=== PATIENT | female | born 1975 | race Caucasian/White ===

== ENCOUNTER 2023-01-04 16:53 | Outpatient (CLI) | payer OTHER, SELFPAY | END 2023-01-04 16:54 | disposition home or self-care (01) | LOC: NFLDREF 16:57 | PROVIDERS: PCP Internal Medicine; Visit Provider Internal Medicine | DX: Z00.00 Encounter for general adult medical examination without abnormal findings (principal); R10.9 Unspecified abdominal pain | CPT/HCPCS: 80053; 87086 ==

== ENCOUNTER 2023-01-18 07:16 | Outpatient (CLI) | payer OTHER, SELFPAY ==
--- NOTE | 2023-01-18 07:15 | CRLHL7_ITS ---
For Patients: As a result of the Century Cures Act, medical imaging exams and procedure reports are released immediately into your electronic medical record. You may view this report before your referring provider. If you have questions, please contact your health care provider. INDICATION: Unspecified abdominal pain. TECHNIQUE: Ultrasound abdomen limited. Sonographic images of the right upper quadrant were obtained using pritchard-scale and color Doppler images. COMPARISON: None. FINDINGS: Liver: Normal in size and echotexture. No suspicious masses. No intrahepatic biliary dilatation. Portal vein is patent with blood flow toward the liver. Gallbladder: No stones or sludge. Normal wall thickness. No pericholecystic fluid. Common bile duct: 3 mm. Pancreas: Unremarkable. Right kidney: Normal in size. Normal echotexture and cortex. No suspicious masses, stones, or hydronephrosis. Vasculature: Proximal abdominal aorta and IVC are unremarkable. IMPRESSION: Unremarkable right upper quadrant ultrasound. Dictated by Ash Clayton MD @ 01/18/2023 4:31:13 PM (Electronically Signed)
== END 2023-01-18 07:17 | disposition home or self-care (01) ==
LOC: US 07:17
PROVIDERS: PCP Internal Medicine; Visit Provider Internal Medicine
DX: R10.9 Unspecified abdominal pain (principal)
CPT/HCPCS: 76705

== ENCOUNTER 2023-08-17 09:18 | Outpatient (CLI) | payer BC, SELFPAY ==
--- OUTSIDE RECORDS SUMMARY | 2023-08-17 09:20 | XMS_ITS | Referral Summary ---
Author Organization [facility] Address [address] [place] [address]. [place] [address] Care Team Providers Care Energy Engineer Name Role Phone Waldemar Mariano MD Primary Care Provider [phone] Social History Tobacco Use Types Packs/Day Years Used Date Smoking Tobacco: Never Assessed Adolescent Education Answer Date Record ed Getting School Help Needed Not on file 11/20 Sex and Gender Information Value Date Recorded Sex Assigned at Not on file Gender Identity Not on file Sexual Orientation Not on file Plan of Treatment Not on file Procedures Procedure Name Priority Date/Time Associated Diagnosis Comments MA DIAGNOSTIC BILATERAL W/ GALLO Routine 01/30/2023 2:56 PM PICKLE SORTER Abnormal mammogram from Last 3 Months or Most Recently Relevant to Health Maintenance Results * MA Diagnostic Bilateral w/Gallo (01/30/2023 2:56 PM PICKLE SORTER) Anatomical Region Laterality Modality Breast Bilateral Mammography Impressions 01/30/2023 3:00 PM PICKLE SORTER IMPRESSION: BI-RADS CATEGORY: 1 - ??NEGATIVE. RECOMMENDED FOLLOW-UP: Annual Mammography. The patient was given the results of the examination. ROSSANA BOYD MD Narrative 01/30/2023 3:00 PM PICKLE SORTER Examination: Bilateral digital diagnostic mammography and digital breast tomosynthesis with computer aided detection, 01/30/2023. Comparison: 04/17/2020, 12/30/2021 and 01/12/2022. History: Follow-up probably benign asymmetry in the RIGHT breast. BREAST DENSITY: Heterogeneously dense Findings: Bilateral mammography with digital breast tomosynthesis was performed. Previously noted focal asymmetry in the upper outer quadrant of the RIGHT breast dissipates on tomosynthesis in today's study, indicating normal fibroglandular tissue. No concerning mammographic/tomographic findings in either breast. Procedure Note Rossana Boyd MD - 01/30/2023 Examination: Bilateral digital diagnostic mammography and digital breast tomosynthesis with computer aided detection, 01/30/2023. Comparison: 04/17/2020, 12/30/2021 and 01/12/2022. History: Follow-up probably benign asymmetry in the RIGHT breast. BREAST DENSITY: Heterogeneously dense Findings: Bilateral mammography with digital breast tomosynthesis was performed. Previously noted focal asymmetry in the upper outer quadrant of the RIGHT breast dissipates on tomosynthesis in today's study, indicating normal fibroglandular tissue. No concerning mammographic/tomographic findings in either breast. IMPRESSION: BI-RADS CATEGORY: 1 - NEGATIVE. RECOMMENDED FOLLOW-UP: Annual Mammography. The patient was given the results of the examination. ROSSANA BOYD MD Ophelia Miranda Flores MD IMG M AMMOGRAPHY ORDERABLES from Last 3 Months or Most Recently Relevant to Health Maintenance Care Teams Energy Engineer Relationship Specialty Start Date End Date Waldemar Mariano MD PCP - General Family Medicine 07/09/20
--- OUTSIDE RECORDS SUMMARY | 2023-08-17 09:20 | XMS_ITS | Clinical Summary ---
Author Organization [facility] Address [address] [place] [id number] Care Team Providers Care Aircraft Engine Technician Name Role Phone Waldemar Mariano MD Primary Care Provider [phone] Social History Tobacco Use Types Packs/Day Years Used Date Smoking Tobacco: Never Assessed Adolescent Education Answer Date Record ed Getting School Help Needed Not on file 11/20 Sex and Gender Information Value Date Recorded Sex Assigned at Not on file Gender Identity Not on file Sexual Orientation Not on file Plan of Treatment Health Maintenance Due Date Last Done Comments ADVANCE CARE PLANNING 1975 ANNUAL REVIEW OF HM ORDERS 1973 CT COLONOGRAPHY 1973 FIT 1973 FLEX SIG 1973 GLUCOSE 1973 sDNA (Cologuard) 1973 COLONOSCOPY 12/16/1983 COLORECTAL CANCER SCREENING 12/16/1983 HIV SCREENING 1988 HEPATITIS C SCREENING 12/16/1991 HEPATITIS B IMMUNIZATION (1 of 3 - 19+ 3-dose series) 1992 DTAP/TDAP/TD IMMUNIZATION (1 - Tdap) 1998 LIPID 2013 YEARLY PREVENTIVE VISIT 08/01/2019 07/31/2018 PAP 07/31/2021 07/31/2018, 07/31/2018 COVID-19 Vaccine ( - season) 2022 PHQ-2 (once per calendar year) 2023 INFLUENZA VACCINE (Season Ended) 2023 02/23/2012, 02/23/2012, 02/18/2010, Additional history exists ZOSTER IMMUNIZATION (1 of 2) 12/16/2023 MAMMO SCREENING 01/30/2025 01/30/2023, 12/22, 12/30/2021, Additional history exists HPV IMMUNIZATION Aged Out No longer e ligible based on patient's age to complete this topic IPV IMMUNIZATION Aged Out No longer e ligible based on patient's age to complete this topic MENINGITIS IMMUNIZATION Aged Out No l onger eligible based on patient's age to complete this topic Pneumococcal Vaccine: Pediatrics (0 to 5 Years) and At-Risk Patients (6 to 64 Years) Aged Out No longer eligible based on patient's age to complete this topic RSV MONOCLONAL ANTIBODY Aged Out No l onger eligible based on patient's age to complete this topic Procedures Procedure Name Priority Date/Time Associated Diagnosis Comments MA DIAGNOSTIC BILATERAL W/ GALLO Routine 01/30/2023 2:56 PM RN NEW GRADUATE Abnormal mammogram from Last 3 Months or Most Recently Relevant to Health Maintenance Results * MA Diagnostic Bilateral w/Gallo (01/30/2023 2:56 PM RN NEW GRADUATE) Anatomical Region Laterality Modality Breast Bilateral Mammography Impressions 01/30/2023 3:00 PM RN NEW GRADUATE IMPRESSION: BI-RADS CATEGORY: 1 - ??NEGATIVE. RECOMMENDED FOLLOW-UP: Annual Mammography. The patient was given the results of the examination. ROSSANA BOYD MD Narrative 01/30/2023 3:00 PM RN NEW GRADUATE Examination: Bilateral digital diagnostic mammography and digital [...] BOYD MD Ophelia Miranda Flores MD IMG AMMOGRAPHY ORDERABLES from Last 3 Months or Most Recently Relevant to Health Maintenance Care Teams Aircraft Engine Technician Relationship Specialty Start Date End Date Waldemar Mariano MD PCP - General Family Medicine 07/09/20
--- NOTE | 2023-08-17 09:30 | CRLHL7_ITS ---
For Patients: As a result of the Century Cures Act, medical imaging exams and procedure reports are released immediately into your electronic medical record. You may view this report before your referring provider. If you have questions, please contact your health care provider. INDICATION: Right upper quadrant abdominal pain. TECHNIQUE: 5.29 mCi Tc-99m labeled Mebrofenin. 1.45 mcg Kinevac IV. FINDINGS: There is normal uptake and excretion of tracer by the liver. Activity is identified promptly within the gallbladder and extrahepatic biliary tree within 5 minutes after injection. There is continued filling of the gallbladder up to 1 hour. No biliary leak. After the administration of Kinevac, the gallbladder ejection fraction is calculated at 25 percent which is below the lower limit of normal of 35 percent. (the patient`s symptoms were reportedly reproduced with Kinevac administration). IMPRESSION: 1. No evidence for cystic duct or common duct obstruction. No evidence for acute cholecystitis. No biliary leak. 2. Abnormally low gallbladder ejection fraction of 25 percent which can be seen in chronic acalculous cholecystitis or biliary dyskinesia. Please correlate clinically. Dictated by José Reynolds MD @ 08/17/2023 12:15:16 PM (Electronically Signed)
== END 2023-08-17 09:19 | disposition home or self-care (01) ==
LOC: NM 09:18
PROVIDERS: PCP Internal Medicine; Visit Provider Internal Medicine
DX: R10.11 Right upper quadrant pain (principal)
CPT/HCPCS: 78227; A9537; J2805

== ENCOUNTER 2023-08-31 09:35 | Day surgery (SDC) | payer BC, SELFPAY ==
[2023-08-31] VITALS (13 sets, daily range): BP systolic 99–116; BP diastolic 59–73; PULSE 53–79; RESP 14–18; TEMP 36.5–36.6; O2SAT 96–100; BMI 22.9
--- OUTSIDE RECORDS SUMMARY | 2023-08-31 09:37 | XMS_ITS | Referral Summary ---
Author Organization [facility] Address [address] [place] [address]. [place] [address] Care Team Providers Care Teller Manager Name Role Phone Waldemar Mariano MD Primary Care Provider Social History Tobacco Use Types Packs/Day Years [...] BILATERAL W/ GALLO Routine 01/30/2023 2:56 PM CHIEF LIBRARIAN BRANCH OR DEPARTMENT Abnormal mammogram from Last 3 Months or Most Recently Relevant to Health Maintenance Results * MA Diagnostic Bilateral w/Gallo (01/30/2023 2:56 PM CHIEF LIBRARIAN BRANCH OR DEPARTMENT) Anatomical Region Laterality Modality Breast Bilateral Mammography Impressions 01/30/2023 3:00 PM CHIEF LIBRARIAN BRANCH OR DEPARTMENT IMPRESSION: BI-RADS CATEGORY: 1 - ??NEGATIVE. RECOMMENDED FOLLOW-UP: Annual Mammography. The patient was given the results of the examination. ROSSANA BOYD MD Narrative 01/30/2023 3:00 PM CHIEF LIBRARIAN BRANCH OR DEPARTMENT Examination: Bilateral digital diagnostic mammography and digital [...] Recently Relevant to Health Maintenance Care Teams Teller Manager Relationship Specialty Start Date End Date Waldemar Mariano MD PCP - General Family Medicine 07/09/20
--- OUTSIDE RECORDS SUMMARY | 2023-08-31 09:37 | XMS_ITS | Clinical Summary ---
Author Organization [facility] Address [address] [place] [address] Care Team Providers Care Intensive Care Anaesthetist Name Role Phone Waldemar Mariano MD Primary Care Provider [phone] Social History Tobacco Use Types Packs/Day Years [...] BILATERAL W/ GALLO Routine 01/30/2023 2:56 PM PRINT COLOR MATCHER Abnormal mammogram from Last 3 Months or Most Recently Relevant to Health Maintenance Results * MA Diagnostic Bilateral w/Gallo (01/30/2023 2:56 PM PRINT COLOR MATCHER) Anatomical Region Laterality Modality Breast Bilateral Mammography Impressions 01/30/2023 3:00 PM PRINT COLOR MATCHER IMPRESSION: BI-RADS CATEGORY: 1 - ??NEGATIVE. RECOMMENDED FOLLOW-UP: Annual Mammography. The patient was given the results of the examination. ROSSANA BOYD MD Narrative 01/30/2023 3:00 PM PRINT COLOR MATCHER Examination: Bilateral digital diagnostic mammography and digital [...] Recently Relevant to Health Maintenance Care Teams Intensive Care Anaesthetist Relationship Specialty Start Date End Date Waldemar Mariano MD PCP - General Family Medicine 07/09/20
[2023-08-31 09:57] LABS: Ur HCG Qualitative* Negative (Negative)
[2023-08-31] MEDS: SODIUM CHLORIDE 0.9 % (FLUSH) 10 ML SYRINGE IVF (09:58)
[2023-08-31] MEDS: LACTATED RINGERS 1000 ML 1,000 ML 100 ML IV (09:58)
--- NOTE | 2023-08-31 10:07 | P.GSOP_ITS ---
Operative Note Date of procedure: 08/31/23 Pre-op diagnosis: Biliary dyskinesia Post-op diagnosis: same Type of Procedure: Laparoscopic cholecystectomy Indications: The patient is a 47-year-old female who presented to clinic with 9 months of abdominal pain on the right side as well as increased bloating. Workup revealed a normal gallbladder, however HIDA scan was obtained which showed an abnormally low ejection fraction of 25%. After discussion of options, she elected to proceed with cholecystectomy. Procedure Description: After discussing the risks and benefits of the procedure, the patient signed informed consent.? The operative site was marked and the patient was brought to the operating room and placed on the operating table in supine position.? Care was taken to pad the patient's pressure points.?? The patient was then intubated by anesthesia.?? The operative site was then prepped and draped in the usual sterile fashion.? A time-out was then performed. Entrance to the abdomen was gained via a 5 mm Visiport in the left upper quadrant. The abdomen was insufflated and briefly surveyed for signs of injury. There was none. A 10 mm umbilical port was placed as well as 2 working ports along the right costal margin, all under direct vision. The patient was then placed in reverse Trendelenburg position with the right side up. The gallbladder fundus was grasped and retracted cephalad. A small amount of dissection was needed to free omental adhesions from the gallbladder. The infundibulum was grasped. A combination of hook cautery and blunt dissection was used to carefully dissect out the cystic duct and artery until they could clearly be seen entering the gallbladder without any intervening structures. The gallbladder was dissected off the cystic plate to achieve the critical view. Once this was achieved the cystic duct and artery were each clipped with 2 clips proximally and 1 clip distally and transected with the scissors. The gallbladder was then taken off of the liver bed and removed from the abdomen using an Endo- Catch bag. The gallbladder bed was surveyed for hemostasis which appeared adequate. The ports were then removed and the abdomen desufflated.The umbilical port fascia was closed with 0 Vicryl. The skin was closed with absorbable subcu ticular suture. Sterile dressings were applied. Instrument sponge and needle counts were correct at the end of the case. The patient was then woken and transferred to the PACU in stable condition. ? The patient tolerated the procedure well. Findings: Omental adhesions to the gallbladder. Anesthesia: GETA Surgeon: Mary Mohamud MD Estimated blood loss (mL): 5 Specimen: Gallbladder Condition: stable Disposition: PACU
[2023-08-31] MEDS: CEFAZOLIN 1 GM inj IVP (10:34)
--- NOTE | 2023-08-31 11:15 | W.ANESCHARGE ---
Anesthesia Charges Start Date/Time Anesthesia Start Date: 08/31/23 Anesthesia Start Time: 10:24 Stop Date/Time Anesthesia Stop Date: 08/31/23 Anesthesia Stop Time: 11:36
[2023-08-31] MEDS: BUPIVACAINE 0.25% 30 ML INJECTION (11:18)
--- NOTE | 2023-08-31 11:37 | W.ANESCHARGE ---
Anesthesia Charges Start Date/Time Anesthesia Start Date: 08/31/23 Anesthesia Start Time: 10:24 Stop Date/Time Anesthesia Stop Date: 08/31/23 Anesthesia Stop Time: 11:36
[2023-08-31] MEDS: HYDROCODONE-ACETAMIN 5-325 MG 1 TAB PO (12:10)
== END 2023-08-31 13:23 | disposition home or self-care (01) ==
PROVIDERS: Anesthesiology; PCP Internal Medicine; Visit Provider Surgery
PROC: 0FT44ZZ Resection of Gallbladder, Percutaneous Endoscopic Approach (ICD-10-PCS; CPT 47562; principal; 2023-08-31 10:15)
DX: K82.8 Other specified diseases of gallbladder (principal); R10.9 Unspecified abdominal pain
CPT/HCPCS: 47562; 00790; 81025; 88304; A9270; J0665; J0690; J1100; J1885; J2250; J2371; J2405; J2704; J2710; J3010; J7120

== ENCOUNTER 2023-10-04 15:15 | Outpatient (RCR) | payer BC, SELFPAY | END 2024-02-01 23:59 | disposition home or self-care (01) | PROVIDERS: PCP Internal Medicine; Visit Provider Physician Assistant | DX: M17.0 Bilateral primary osteoarthritis of knee (principal); M25.562 Pain in left knee; M25.561 Pain in right knee; R26.89 Other abnormalities of gait and mobility; R29.898 Other symptoms and signs involving the musculoskeletal system; Z51.89 Encounter for other specified aftercare | CPT/HCPCS: 97110; 97140; 97162 ==

== ENCOUNTER 2024-10-04 11:02 | Emergency (ER) | payer BC, SELFPAY ==
--- OUTSIDE RECORDS SUMMARY | 2024-10-04 11:04 | XMS_ITS | Clinical Summary ---
Author Organization [facility] Address [address] [place] [address] Care Team Providers Care Automatic Spinning Lathe Operator Name Role Phone Waldemar Mariano MD Primary Care Provider [phone] Social History Tobacco Use Types Packs/Day Years Used Date Smoking Tobacco: Never Assessed Adolescent Education Answer Date Record ed Getting School Help Needed Not on file 11/20 Comments Unknown Sex and Gender Information Value Date Recorded Sex Assigned at Not on file Legal Sex Female 3:21 AM RESEARCH PROGRAM ASSISTANT Gender Identity Not on file Sexual Orientation Not on file Plan of Treatment Upcoming Encounters Date Type Department Care Team (Late st Contact Info) Description 10/16/2024 2:45 PM CDT Appointment [facility] [address], [address] [place] [address] Health Maintenance Due Date Last Done Comments ADVANCE CARE PLANNING 1975 ANNUAL REVIEW OF HM ORDERS 1973 CT COLONOGRAPHY 1973 DIABETES SCREENING 1973 FIT 1973 FLEX SIG 1973 sDNA (Cologuard) 1973 COLONOSCOPY 12/16/1983 COLORECTAL CANCER SCREENING 12/16/1983 HIV SCREENING 1988 HEPATITIS C SCREENING 12/16/1991 HEPATITIS B VACCINE (1 of 3 - 19+ 3-dose series) 1992 DTAP/TDAP/TD VACCINE (1 - Tdap) 1998 LIPID 2013 YEARLY PREVENTIVE VISIT 08/01/2019 07/31/2018 PAP 07/31/2021 07/31/2018, 07/31/2018 COVID-19 VACCINE (1 - season) 2023 PNEUMOCOCCAL VACCINE 50+ YEARS (1 of 1 - PCV) 12/16/2023 ZOSTER VACCINE (1 of 2) 12/16/2023 PHQ-2 (once per calendar year) 2024 INFLUENZA VACCINE (#1) 2024 02/23/2012, 2009 MAMMO SCREENING 01/30/2025 01/30/2023, 12/22, 12/30/2021, Additional history exists HPV VACCINE (No Doses Required) Completed MENINGITIS VACCINE Aged Out No longer eligible based on patient's age to complete this topic Procedures Procedure Name Priority Date/Time Associated Diagnosis Comments MA DIAGNOSTIC BILATERAL W/ GALLO Routine 01/30/2023 2:56 PM RESEARCH PROGRAM ASSISTANT Abnormal mammogram from Last 3 Months or Most Recently Relevant to Health Maintenance Results * MA Diagnostic Bilateral w/Gallo (01/30/2023 2:56 PM RESEARCH PROGRAM ASSISTANT) Anatomical Region Laterality Modality Breast Bilateral Mammography Impressions 01/30/2023 3:00 PM RESEARCH PROGRAM ASSISTANT IMPRESSION: BI-RADS CATEGORY: 1 - NEGATIVE. RECOMMENDED FOLLOW-UP: Annual Mammography. The patient was given the results of the examination. ROSSANA BOYD MD Narrative 01/30/2023 3:00 PM RESEARCH PROGRAM ASSISTANT Examination: Bilateral digital diagnostic mammography and digital [...] BOYD MD Ophelia Miranda Flores MD IMG MAMMOGRAP ORDERABLES Final Result from Last 3 Months or Most Recently Relevant to Health Maintenance Insurance * Guarantor: Shelby Bacon Account Type Relation to Patient Date of Phone Billing Address Personal/Family Self [address] [place] [id number] [employer]ATT[email or web address] [facility] Address: [facility] [address] [place] [address] [place] [address] [employer] Care Teams Automatic Spinning Lathe Operator Relationship Specialty Start Date End Date Waldemar Mariano MD PCP - General Family Medicine 07/09/20
[2024-10-04 11:06] VITALS: BP 95/62; PULSE 74; RESP 16; TEMP 36.6; O2SAT 97; BMI 23.6
--- NOTE | 2024-10-04 11:33 | CRLHL7_ITS ---
For Patients: As a result of the Century Cures Act, medical imaging exams and procedure reports are released immediately into your electronic medical record. You may view this report before your referring provider. If you have questions, please contact your health care provider. INDICATION: Pelvic pain and history of endometriosis COMPARISON: None. TECHNIQUE: Transabdominal: Hill-scale and color Doppler ultrasound of the uterus and ovaries from a transabdominal approach. Transvaginal: Hill-scale and color Doppler ultrasound of the uterus and ovaries from a transvaginal approach. Transvaginal ultrasound of the pelvis was performed to better visualize the genitourinary organs, such as the ovaries and/or endometrium. Color-flow and spectral Doppler imaging of both ovaries is performed. FINDINGS: Reported last menstrual period: Not provided. The uterus is retroverted and measures 8.2 x 4.0 x 4.9 cm. No uterine masses. No visible endometrial stripe. There is an IUD in the endometrial canal. The right ovary measures 2.1 x 1.5 x 1.4 cm. Physiologic appearance without a dominant cystic lesion or solid ovarian / adnexal mass. There is normal arterial and venous color Doppler flow and normal arterial and venous waveforms on duplex Doppler. The left ovary measures 2.2 x 1.2 x 1.4 cm. Physiologic appearance without a dominant cystic lesion or solid ovarian / adnexal mass. There is normal arterial and venous color Doppler flow and normal arterial and venous waveforms on duplex Doppler. Small right lower quadrant free fluid. IMPRESSION: Small right lower quadrant free fluid. IUD in good position. Quiescent appearance of both ovaries without any follicles or masses. Dictated by Radha Kraus MD @ 10/04/2024 12:39:58 PM (Electronically Signed)
[2024-10-04 11:51] LABS: Lactate* 0.8 mmol/L (0.5-1.9)
--- NOTE | 2024-10-04 11:51 | ED.GENADULT ---
HPI - General Adult General Chief complaint: Abdominal Pain Stated complaint: Lower abdominal pain Time Seen by Provider: 10/04/24 11:23 Source: patient Mode of arrival: ambulatory Limitations: no limitations History of Present Illness HPI narrative: 48-year-old female coming in today complaining of suprapubic pain that started yesterday. States that she had a hard time sleeping secondary to discomfort. She states that she has had this before but it was never been quite as uncomfortable as it was last night. Patient has an IUD in place that has been there for approximately 5 years she is due to have it taken out this fall, she has an appointment in 2 weeks. She denies vaginal discharge, increased urinary frequency or urgency, dysuria, diarrhea or constipation. States that her last bowel movement was the day before yesterday she generally has a bowel movement every 2nd and 3rd day. She denies nausea or vomiting. No fevers or chills. Pain does not radiate. Past surgical history includes a surgery for endometriosis many years ago and a cholecystectomy approximately 1 year ago. Related Data Previous Rx's ?Medication ?Instructions ?Recorded nitrofurantoin 100 mg PO Q12H 5 days #10 caps 10/04/24 monohydrate/macrocrystals 100 mg capsule (Macrobid) Allergies Allergy/AdvReac Type Severity Reaction Status Date / Time No Known Drug Allergies Allergy Verified 10/04/24 11:05 Review of Systems Status of ROS: Reports: 10 or more systems reviewed and unremarkable except as noted in History and below PFSH [facility] Medical History Abdominal pain ?R10.9 - Unspecified abdominal pain (ICD-10) Surgical History History of cholecystectomy (08/31/23) ?Z90.49 - Acquired absence of other specified parts of digestive tract (ICD-10) H/O laparoscopy ?Z98.890 - Other specified postprocedural states (ICD-10) Social History Narrative: No tobacco use. 2-3 drinks/week. Works as a business process associate. Smoking Status: Never smoker How often do you have a drink containing alcohol: monthly or less How many standard drinks containing alcohol do you have on a typical day: 3 or 4 AUDIT-C Alcohol total score: 2 Non-prescribed substance use: denies use Caffeine: No Are you using contraception or practicing any form of control: Yes Exam Narrative: Exam Narrative: Well-nourished well-developed patient in no acute distress. Alert and oriented. Answers questions appropriately. Mood and affect are appropriate. Thoughts are goal oriented and rational. No tangential or magical thinking noted. Patient speaks in full sentences without needing to catch her breath. HEENT: Normocephalic atraumatic. Pupils are equally round reactive to light. Extraocular muscles are intact. Conjunctivae are moist without any icterus noted. Moist mucous membranes. Cardiovascular: Heart is regular rate and rhythm S1 and S2 are present without any murmurs. Lungs: Clear to auscultation bilaterally no wheezes rhonchi or rales are appreciated. Abdomen: Soft and nondistended with normal bowel sounds. No guarding or rebound. No masses or organomegaly appreciated. Mild suprapubic tenderness. Extremities: Bilateral lower extremities are without edema. Skin: Exposed skin is well perfused without any obvious rashes. : Normal external female genitalia. Bimanual exam reveals no cervical motion tenderness. No tenderness with pressure on the uterus. No adnexal masses. She does have some tenderness with compression of the bladder. No bleeding noted. Const: Vital Signs, click to edit/add: Vital Signs - 24 hr 10/04/24 11:06 Temperature 98 F Pulse Rate [Pulse Oximeter] 74 Respiratory Rate 16 Blood Pressure [Ri ght Upper Arm] 95/62 Pulse Oximetry 97 Oxygen Delivery Me thod Room Air Course Course ED Course: 48-year-old female with suprapubic pain of unclear etiology. Pelvic/transvaginal ultrasound shows minimal free fluid in the right pelvis, otherwise completely normal. Blood work was unremarkable. Patient does have trace leukocyte esterase in her UA but no urinary symptoms such as increased frequency, urgency or dysuria. However because of the location of her pain we will go ahead and treat with Macrobid for 5 days. Patient has an appointment at the end of this month with OBGYN. Return to ER if she develops fever, vomiting or other concerning symptoms. Vital Signs Vital signs: Initial Vital Signs Temperature 98 F 10/04/24 11:06 Temperature Source Temporal Artery Scan 10/04/24 11:06 Pulse Rate 74 08/15/25 11:06 Respiratory Rate 16 10/04/24 11:06 Blood Pressure 95/62 10/04/24 11:06 Blood Pressure Mean 73 10/04/24 11:06 Blood Pressure Position Sitting 10/04/24 11:06 Pulse Oximetry 97 10/04/24 11:06 Oxygen Delivery Method Room Air 10/04/24 11:06 Vital Signs Temperature 98 F 10/04/24 11:06 Pulse Rate 74 10/04/24 11:06 Respiratory Rate 16 10/04/24 11:06 Blood Pressure 95/62 10/04/24 11:06 Pulse Oximetry 97 10/04/24 11:06 Oxygen Delivery Method Room Air 10/04/24 11:06 Temperature 98 F 10/04/24 11:06 Pulse Rate 74 10/04/24 11:06 Respiratory Rate 16 10/04/24 11:06 Blood Pressure 95/62 10/04/24 11:06 Pulse Oximetry 97 10/04/24 11:06 Oxygen Delivery Method Room Air 10/04/24 11:06 Medical Decision Making Lab Data Lab results reviewed: Yes I reviewed the patient's lab results Labs: Lab Results 10/04/24 10/04/24 Range/Units 11:13 11:45 WBC 7.19 (4.50-11.00) K/uL RBC 4.47 (4.00-5.20) m/uL Hgb 13.2 (12.0-16.0) gm/dL Hct 40.5 (33.0-51.0) % MCV 91 (80-100) fL MCH 30 (26-34) pg MCHC 33 (32-36) gm/dL RDW Coeff of Alexandra 12.1 (11.5-15.5) % Plt Count 184 (140-440) K/uL Neut % (Auto) 81.3 H (42.0-72.0) % Lymph % (Auto) 11.4 L (20-44) % [place] % (Auto) 6.5 (0.0-11.0) % Eos % (Auto) 0.4 (0.0-7.0) % Baso % (Auto) 0.3 (0.0-3.0) % Neut # (Auto) 5.80 (1.7-7.0) K/uL Lymph # (Auto) 0.80 L (0.90-2.90) K/uL [place] # (Auto) 0.50 (0.00-0.90) K/UL Eos # (Auto) 0.03 (0.00-0.50) K/uL Baso # (Auto) 0.02 (0.00-0.30) K/uL Abs Immat Gran (auto) 0.01 (0.00-0.30) K/uL Imm/Tot Granulo (auto) 0.1 % Sodium 138 (135-149) mmol/L Potassium 4.4 (3.6-5.1) mmol/L Chloride 105 (96-114) mmol/L Carbon Dioxide 27 (20-32) mmol/L Anion Gap 6 L (7-15) mEq/L BUN 15 (7-30) mg/dL Creatinine 0.7 (0.5-1.5) mg/dL Estimated Creat Clear 103.97 Estimated GFR 105 ml/min Glucose 89 (60-115) mg/dL Lactate 0.8 (0.5-1.9) mmol/L Calcium 9.6 (8.4-10.6) mg/dL Total Bilirubin 0.5 (0.1-1.5) mg/dL Direct Bilirubin 0.1 (0.0-0.5) mg/dL AST 30 (12-35) U/L ALT 25 (4-35) U/L Alkaline Phosphatase 57 (40-150) U/L C-Reactive Protein < 0.5 L (0.5-1.0) mg/dL Total Protein 7.5 (6.0-8.3) g/dL Albumin 4.5 (3.3-5.0) g/dL Lipase 64 (23-300) U/L Urine Color Yellow (Yellow) Urine Appearance Clear (Clear) Urine pH 7.0 (5.0-8.5) Ur Specific [place] 1.010 (1.000-1.030) Urine Protein Negative (Negative) Urine Glucose (UA) Negative (Negative) Urine Ketones Negative (Negative) Urine Blood Trace-intact A (Negative) Urine Nitrite Negative (Negative) Urine Bilirubin Negative (Negative) Urine Urobilinogen 0.2 (0.2-1.0) Ur Leukocyte Esterase Trace A (Negative) Urine RBC 0-2 (0-2) Urine WBC 0-2 (0-5) Ur Squamous Epith Cells Few (None-Few) Urine Bacteria Few A (None) Imaging Data Pelvic ultrasound: Attestation: I have reviewed the pertinent imaging results. Radiologist's impression: TECHNIQUE: Transabdominal: Hill-scale and color Doppler ultrasound of the uterus and ovaries from a transabdominal approach. Transvaginal: Hill-scale and color Doppler ultrasound of the uterus and ovaries from a transvaginal approach. Transvaginal ultrasound of the pelvis was performed to better visualize the genitourinary organs, such as the ovaries and/or endometrium. Color-flow and spectral Doppler imaging of both ovaries is performed. FINDINGS: Reported last menstrual period: Not provided. The uterus is retroverted and measures 8.2 x 4.0 x 4.9 cm. No uterine masses. No visible endometrial stripe. There is an IUD in the endometrial canal. The right ovary measures 2.1 x 1.5 x 1.4 cm. Physiologic appearance without a dominant cystic lesion or solid ovarian / adnexal mass. There is normal arterial and venous color Doppler flow and normal arterial and venous waveforms on duplex Doppler. The left ovary measures 2.2 x 1.2 x 1.4 cm. Physiologic appearance without a dominant cystic lesion or solid ovarian / adnexal mass. There is normal arterial and venous color Doppler flow and normal arterial and venous waveforms on duplex Doppler. Small right lower quadrant free fluid. IMPRESSION: Small right lower quadrant free fluid. IUD in good position. Quiescent appearance of both ovaries without any follicles or masses. Discharge Plan Discharge Clinical Impression: Pelvic pain Patient Disposition: Home, Self-Care Condition: Stable Additional Instructions: Labs and ultrasound today were unremarkable. Your urine test was minimally abnormal however given the location of your symptoms, it is reasonable to treat for a possible urinary bladder infection. Take all antibiotics as prescribed. Follow-up with your OBGYN as scheduled. You will be given a printout of all your lab work and the results of your ultrasound today to take to your next appointment. Return to the emergency department if you develop fever or vomiting with worsening pain. Prescriptions: New nitrofurantoin monohyd/m-cryst [Macrobid] 100 mg capsule 100 mg PO Q12H 5 Days Qty: 10 0RF Rx Instructions: must administer with a meal/food Follow Up/Referrals: Pascual Moya MD [Primary Care Provider, Internal Medicine] Stand Alone Forms: [employer] Info Instructions
[2024-10-04 11:55] LABS: Hematocrit 40.5 % (33.0-51.0); Hemoglobin* 13.2 gm/dL (12.0-16.0); Immature Granulocytes Abs Auto 0.01 K/uL (0.00-0.30); Immature Granulocytes Pct Auto 0.1 %; Mean Corpuscular HGB Conc 33 gm/dL (32-36); Mean Corpuscular Hemoglobin 30 pg (26-34); Mean Corpuscular Volume 91 fL (80-100); RDW Coefficient of Variation % 12.1 % (11.5-15.5); Red Blood Count 4.47 m/uL (4.00-5.20); White Blood Count* 7.19 K/uL (4.50-11.00)
[2024-10-04 12:02] LABS: Lymphocytes Absolute Auto 0.80 K/uL (0.90-2.90); Slide Review Reflex No
[2024-10-04 12:09] LABS: Albumin* 4.5 g/dL (3.3-5.0); Chloride* 105 mmol/L (96-114); Potassium* 4.4 mmol/L (3.6-5.1); Sodium* 138 mmol/L (135-149)
[2024-10-04 12:11] LABS: Blood Urea Nitrogen* 15 mg/dL (7-30); Creatinine* 0.7 mg/dL (0.5-1.5); Est. Creatinine Clearance* 103.97; Estimated Glomerular Filt Rate 105 ml/min
[2024-10-04 12:12] LABS: Alanine Aminotransferase* 25 U/L (4-35); Alkaline Phosphatase* 57 U/L (40-150); Anion Gap 6 mEq/L (7-15); Aspartate Amino Transferase* 30 U/L (12-35); Bilirubin Direct* 0.1 mg/dL (0.0-0.5); Bilirubin Total* 0.5 mg/dL (0.1-1.5); Calcium* 9.6 mg/dL (8.4-10.6); Carbon Dioxide* 27 mmol/L (20-32); Glucose* 89 mg/dL (60-115); Total Protein* 7.5 g/dL (6.0-8.3)
[2024-10-04 12:13] LABS: Appearance Urine Clear (Clear)
[2024-10-04 16:06] LABS: Ur HCG Qualitative* Negative (Negative)
== END 2024-10-04 13:21 | disposition home or self-care (01) ==
PROVIDERS: Emergency Provider Family Medicine; PCP Internal Medicine
DX: R10.2 Pelvic and perineal pain (principal)
CPT/HCPCS: 36415; 76830; 76856; 80048; 80076; 81001; 81025; 83605; 83690; 85025; 86140; 87086; 93976; 99284